=== PATIENT | female | born 1985 | race Hispanic/Latino ===

== ENCOUNTER 2021-09-30 17:25 | Outpatient (CLI) | payer BC ==
[2021-09-30 18:27] LABS: BHCG - Serum Negative (NEGATIVE); Pregs Control Background? CLEAR/WHITE (CLR/WHITE); Pregs Control Bar Appear? YES (CONTROL BAR)
== END 2021-09-30 17:26 | disposition home or self-care (01) ==
LOC: LABBT 17:25
PROVIDERS: ATTEND Otolaryngology Plastic Surgery within the Head & Neck
DX: Z01.812 Encounter for preprocedural laboratory examination (principal); H72.2X1 Other marginal perforations of tympanic membrane, right ear; Z20.822 Contact with and (suspected) exposure to COVID-19
CPT/HCPCS: 84703; 85014; U0003; U0005

== ENCOUNTER 2021-10-05 06:17 | Day surgery (SDC) | payer BC ==
[2021-09-30 14:13] VITALS: BMI 20.1
[2021-10-05] MEDS ORDERED: fentaNYL Citrate/PF 100 MCG/2 ML SYRINGE ONE (06:34)
[2021-10-05] MEDS ORDERED: EPINEPHrine 1 MG/ML AMP ONE (07:00)
[2021-10-05] MEDS ORDERED: Lidocaine 1% w/Epinephrine 1:100K 20 ML VIAL ONE (07:00)
[2021-10-05] MEDS ORDERED: Ciprofloxacin 0.2% Otic (0.25ML CONTAINER) ONE ×3 (07:00→08:50)
[2021-10-05] MEDS ORDERED: Scopolamine 1.5 mg/72 hour Patch ONE (07:05)
[2021-10-05] MEDS ORDERED: Midazolam HCl 2 mg/2 ml Vial ONE (07:27)
[2021-10-05] MEDS ORDERED: Bacitracin Zinc Ointment 30 gm TUBE ONE (08:04)
[2021-10-05] MEDS ORDERED: Morphine 2 MG/ML VIAL ONE ×2 (10:04→11:17)
[2021-10-05] MEDS ORDERED: HYDROcodone/Acetaminophen 5/325 mg Tablet ONE ×2 (10:29→11:14)
[2021-10-07 13:27] LABS: Allergen,Alternaria altern.IgE Less than 0.10 kU/L (Less than 0.10); Allergen,Ash white IgE Less than 0.10 kU/L (Less than 0.10); Allergen,Aspergillus fumig.IgE Less than 0.10 kU/L (Less than 0.10); Allergen,Beef IgE Less than 0.10 kU/L (Less than 0.10); Allergen,Bermuda grass IgE Less than 0.10 kU/L (Less than 0.10); Allergen,Cat dander IgE Less than 0.10 kU/L (Less than 0.10); Allergen,Cedar mountain IgE Less than 0.10 kU/L (Less than 0.10); Allergen,Cladosporium herb.IgE Less than 0.10 kU/L (Less than 0.10); Allergen,Corn IgE Less than 0.10 kU/L (Less than 0.10); Allergen,Cottonwood Tree IgE Less than 0.10 kU/L (Less than 0.10); Allergen,Curvularia lunata IgE Less than 0.10 kU/L (Less than 0.10); Allergen,D. pteronyssinus IgE Less than 0.10 kU/L (Less than 0.10); Allergen,Dog dander IgE Less than 0.10 kU/L (Less than 0.10); Allergen,Egg white IgE Less than 0.10 kU/L (Less than 0.10); Allergen,Egg yolk IgE Less than 0.10 kU/L (Less than 0.10); Allergen,Elm AmericanWhite IgE Less than 0.10 kU/L (Less than 0.10); Allergen,Johnson grass IgE Less than 0.10 kU/L (Less than 0.10); Allergen,Lamb's qrters Gooseft Less than 0.10 kU/L (Less than 0.10); Allergen,Mesquite IgE Less than 0.10 kU/L (Less than 0.10); Allergen,Milk IgE Less than 0.10 kU/L (Less than 0.10); Allergen,Oat IgE Less than 0.10 kU/L (Less than 0.10); Allergen,Peanut IgE Less than 0.10 kU/L (Less than 0.10); Allergen,Pecan nut IgE Less than 0.10 kU/L (Less than 0.10); Allergen,Pecan/Hickory IgE Less than 0.10 kU/L (Less than 0.10); Allergen,Plantain English IgE Less than 0.10 kU/L (Less than 0.10); Allergen,Pork IgE Less than 0.10 kU/L (Less than 0.10); Allergen,Ragweed giant IgE Less than 0.10 kU/L (Less than 0.10); Allergen,Rice IgE Less than 0.10 kU/L (Less than 0.10); Allergen,Saltwort RussianThist Less than 0.10 kU/L (Less than 0.10); Allergen,Soybean IgE Less than 0.10 kU/L (Less than 0.10); Allergen,Sycamore Maple Lf IgE Less than 0.10 kU/L (Less than 0.10); Allergen,Timothy grass IgE Less than 0.10 kU/L (Less than 0.10); Allergen,Tomato IgE Less than 0.10 kU/L (Less than 0.10); Allergen,Wheat IgE Less than 0.10 kU/L (Less than 0.10); Allergen,Wormwood IgE Less than 0.10 kU/L (Less than 0.10)
== END 2021-10-05 12:00 | disposition home or self-care (01) ==
LOC: SDC 06:17
PROVIDERS: ATTEND Otolaryngology Plastic Surgery within the Head & Neck
PROC: 09U787Z Supplement Right Tympanic Membrane with Autologous Tissue Substitute, Via Natural or Artificial Opening Endoscopic (ICD-10-PCS; principal; 2021-10-05)
PROC: 0JB10ZZ Excision of Face Subcutaneous Tissue and Fascia, Open Approach (ICD-10-PCS; principal; 2021-10-05)
DX: H72.2X1 Other marginal perforations of tympanic membrane, right ear (principal); H90.8 Mixed conductive and sensorineural hearing loss, unspecified; H71.91 Unspecified cholesteatoma, right ear; J32.9 Chronic sinusitis, unspecified; G50.1 Atypical facial pain; H69.83 Other specified disorders of Eustachian tube, bilateral; J34.2 Deviated nasal septum; J34.3 Hypertrophy of nasal turbinates; Z79.899 Other long term (current) drug therapy
CPT/HCPCS: C1713; J0171; J2250; J2270